=== PATIENT | female | born 1995 | race Caucasian/White ===

== ENCOUNTER 2017-06-29 10:08 | Emergency (ER) | payer BC, SELFPAY ==
[2017-06-29 10:10] VITALS: BP 158/101; PULSE 107; RESP 16; TEMP 36.7; O2SAT 98; BMI 46.0
--- NOTE | 2017-06-29 10:28 | RAD_ITS ---
STUDY: X-RAY - LEFT TIBIA AND FIBULA REASON FOR EXAM: Female, 22 years old. Lower extremity pain following a fall. TECHNIQUE: 4 view(s) of the tibia and fibula were obtained. COMPARISON: None. FINDINGS: Nondisplaced fracture involving the posterior malleolus of the distal tibia. Normal visualized fibula. Soft tissue swelling. RAD/Tibia & Fibula 2 Views IMPRESSION: Nondisplaced fracture of the posterior malleolus of the distal tibia with overlying soft tissue swelling. Electronically Signed: Haris Mix MD at 11:35 EDT Tel [phone], Service support ,
--- NOTE | 2017-06-29 10:29 | RAD_ITS ---
STUDY: X-RAY - LEFT ANKLE REASON FOR EXAM: Female, 22 years old. Lower extremity pain following injury. TECHNIQUE: 3 view(s) of the ankle. COMPARISON: None. FINDINGS: Nondisplaced fracture along the posterior aspect of the distal tibial metaphysis. Normal medial and lateral malleoli. Normal tibiotalar articulation and ankle mortise. Normal visualized talus and calcaneus. The visualized subtalar, talonavicular, calcaneocuboid and tarsal articulations are normal. Soft tissue swelling. RAD/Ankle min 3 Views IMPRESSION: Nondisplaced fracture involving the posterior aspect of the distal tibial metaphysis. Soft tissue swelling. Electronically Signed: Haris Mix MD at 11:34 EDT Tel [phone], Service support ,
[2017-06-29] MEDS: Naproxen 500 MG Tablet PO (10:35)
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
--- NOTE | 2017-06-29 10:58 | ED.DEP ---
ED Disposition - Plan for ED Patient: Disposition: Home or Assisted Living Chief Complaint: Lower Extremity Injury Instructions: ED Sprain Ankle W X Ray Prescriptions: Naproxen 500 mg PO BID PRN PRN #20 tab PRN Reason: Pain
--- NOTE | 2017-06-29 11:55 | ED.DEP ---
ED Disposition - Plan for ED Patient: Disposition: Home or Assisted Living Chief Complaint: Lower Extremity Injury Instructions: ED Fx Lower Ext Prescriptions: Oxycodone [Oxyir] 5 mg PO Q6H PRN PRN #20 tab PRN Reason: Pain Naproxen 500 mg PO BID PRN PRN #20 tab PRN Reason: Pain Referrals: [facility],Out of [Primary Care Provider] -
== END 2017-06-29 12:13 | disposition home or self-care (01) ==
PROVIDERS: Emergency Provider Emergency Medicine
DX: S82.302A Unspecified fracture of lower end of left tibia, initial encounter for closed fracture (principal); E66.9 Obesity, unspecified; W00.0XXA Fall on same level due to ice and snow, initial encounter; Y93.01 Activity, walking, marching and hiking; Y92.89 Other specified places as the place of occurrence of the external cause; Y99.8 Other external cause status
CPT/HCPCS: 29515; 73590; 73610; 99284

== ENCOUNTER 2017-09-13 15:50 | Outpatient (RCR) | payer BC, SELFPAY ==
--- NOTE | 2017-09-13 16:40 | HP.PTEVAL_ITS ---
Patient's Visit Information DAYTON BENDER is a 22 year old F referred to Physical Therapy by Out of Town Doctor with a diagnosis of Broken fibula. Date of Evaluation: 09/13/17 Physical Therapist: Indigo Ying - Visit Plan Frequency: 3x /Week Duration: 6 Weeks Plan: 3X/ week for 6 weeks for L ankle AROM, stretching, strengtheing, balnce and proproception, gait training with HEP. - Subjective Subjective: Pt fell and broke her ankle in May and had surgery June and she broke fibula, base of ankle and chipped the top of the ball of the ankle and the ligaments that surrounded the ankle. She has a tight rope, plate, 6 screws. She is supposed to be wearing the boot and weaning to a brace but she is not wearing the boot or the brace. wants her to do PT. She is leaving to go to [place] [facility]. Pt has zero pain with it and some stiffness. She is going up and down stairs and has been khayaking a lot in the last few weeks and having some squating issues and initial pressure. She will do HEP on her trip. - Pain L ankle pain Pain Intensity (Out of 10): 0 - Objective Gait: walks like she still is wearing the boot with L forefoot hip abd and decreased DF. L ankle AROM: 0 degrees DF and 42 degrees PF, 12 degrees INV and 4 degrees EV. R ankle AROM: 7 degrees DF and 50 degrees PF. scar is adhered in several places. Is able to heel and toe raise at the same time with both feet X 5 each direction. L ankle MMT: Inv/EV 4-/5 B - Goals Goal 1:: I HEP Goal Time Frame: 4-6 Weeks Goal 2:: Increase L ankle AROM DF to 7 degrees Goal Time Frame: 4-6 Weeks Goal 3:: Walk with a normal gait pattern Goal Time Frame: 4-6 Weeks - Rehabilitation Potential Rehabilitation Potential: Good - Anticipated Interventions Patient/Client Instruction: Educate patient on: Plan of Care For the Purpose of:: To decrease pain, To decrease swelling/inflammation, To increase ROM, To improve nutrient delivery to tissue, To improve muscle performance and motor function, To improve ability to perform ADL's, To increase tolerance to activity/condition/position, To improve gait and locomotor functions, To improve health of tissue, To decrease soft tissue restriction, To increase flexibility/ROM, To improve balance Therapeutic Exercise to Include: Strength training, Endurance training, Balance training, Flexibilty training, Gait and locomotor training, Passive ROM, Active ROM For the Purpose of:: To decrease pain, To decrease swelling/inflammation, To increase ROM, To improve nutrient delivery to tissue, To improve muscle performance and motor function, To improve ability to perform ADL's, To improve gait and locomotor functions, To improve health of tissue, To decrease soft tissue restriction, To increase flexibility/ROM, To improve balance Functional Training to Include: Gait training For the Purpose of:: To improve gait and locomotor functions, To improve safety with gait Manual Therapy Techniques to Include: Passive ROM For the Purpose of:: To increase ROM, To decrease soft tissue restriction, To increase flexibility/ROM IF ES: Yes Cryotherapy (ice pack, ice massage): Yes For the Purpose of:: To decrease pain, To decrease swelling/inflammation, To increase ROM, To improve nutrient delivery to tissue Thank you for the opportunity to evaluate your patient. For Medicare and Medicare HMO plans, please review the plan of care and approve it. It will need to be FAXED BACK to us at [phone] for Medicare purposes. Please let me know if there are questions or concerns regarding this plan of care. Physician Signature: Date:
--- NOTE | 2017-12-01 12:56 | HP.PT.NRP ---
HP - Discharge Summary (1) - Patient Information DAYTON BENDER was seen in my office for initial evaluation on 09/13/17. The following Plan of Care was established for this patient: Initial Frequency: 3x /Week Initial Duration: 6 Weeks - Anticipated Interventions Patient/Client Instruction: Educate patient on: Plan of Care For the Purpose of:: To decrease pain, To decrease swelling/inflammation, To increase ROM, To improve nutrient delivery to tissue, To improve muscle performance and motor function, To improve ability to perform ADL's, To increase tolerance to activity/condition/position, To improve gait and locomotor functions, To improve health of tissue, To decrease soft tissue restriction, To increase flexibility/ROM, To improve balance Therapeutic Exercise to Include: Strength training, Endurance training, Balance training, Flexibilty training, Gait and locomotor training, Passive ROM, Active ROM For the Purpose of:: To decrease pain, To decrease swelling/inflammation, To increase ROM, To improve nutrient delivery to tissue, To improve muscle performance and motor function, To improve ability to perform ADL's, To improve gait and locomotor functions, To improve health of tissue, To decrease soft tissue restriction, To increase flexibility/ROM, To improve balance Functional Training to Include: Gait training For the Purpose of:: To improve gait and locomotor functions, To improve safety with gait Manual Therapy Techniques to Include: Passive ROM For the Purpose of:: To increase ROM, To decrease soft tissue restriction, To increase flexibility/ROM IF ES: Yes Cryotherapy (ice pack, ice massage): Yes For the Purpose of:: To decrease pain, To decrease swelling/inflammation, To increase ROM, To improve nutrient delivery to tissue This patient was last seen in our office 09/13/17. Pertinent comments regarding their Physical therapy will appear below: Pt did not schedule any additional appointments after her initial eval. [facility]. At this point I will be discontinuing this patient from physical therapy. I would be happy to see this patient again in the future if found appropriate by the physician. Thank you! Indigo Ying
== END 2017-09-13 19:00 | disposition home or self-care (01) ==
LOC: PT 15:50
DX: S93.432D Sprain of tibiofibular ligament of left ankle, subsequent encounter (principal); M25.372 Other instability, left ankle
CPT/HCPCS: 97161

== ENCOUNTER → 2017-09-20 13:24 | Outpatient (CLI) | payer BC, SELFPAY ==
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
== END ==
DX: M79.672 Pain in left foot (principal); S91.332A Puncture wound without foreign body, left foot, initial encounter; X58.XXXA Exposure to other specified factors, initial encounter; Y93.9 Activity, unspecified; Y92.9 Unspecified place or not applicable; Y99.9 Unspecified external cause status
CPT/HCPCS: 73630

== ENCOUNTER 2017-09-21 17:27 | Emergency (ER) | payer BC, SELFPAY ==
[2017-09-21 17:28] VITALS: BP 146/101; PULSE 150; RESP 16; TEMP 37.6; O2SAT 98; BMI 47.7
[2017-09-21 18:50] LABS: Absolute Lymphocyte Count 0.77 X10^3/ul (0.83-4.51); Absolute Neutrophil Count 9.4 X10^3/uL (2.0-7.7); Basophil# 0.02 X10^3/uL; Basophil% 0.2 % (0-1); Eosinophil# 0.02 X10^3/uL; Eosinophils% 0.2 % (0-5); Hematocrit 41.1 % (37-47); Hemoglobin 13.6 g/dl (12.0-15.0); Lymphocyte # 0.77 X10^3/ul (4.0); Lymphocyte % 7.1 % (19-41); Mean Corp Hgb Conc 33.1 g/gl (32-36); Mean Corpuscular Volume 87.6 fL (81-99); Mean Platelet Vol. 9.1 fl (6.2-12.0); Monocyte% 5.5 % (0-10); Neutrophil # 9.44 X10^3/uL (2.7-7.7); Neutrophil % 86.9 % (47-70); Platelet Count 230 K/mm3 (150-450); RBC Distribution Width CV 13.6 % (11.6-14.6); Red Blood Count 4.69 M/mm3 (4.2-5.4); White Blood Count 10.9 K/mm3 (4.4-11.0)
[2017-09-21 18:56] LABS: Anion Gap 11 (5-15); BUN 10 mg/dL (7-18); BUN/Creat Ratio 9.9 RATIO (10-20); Calcium,Total 9.1 mg/dL (8.5-10.1); Chloride 103 mmol/L (98-107); Creatinine, Serum 1.01 mg/dL (0.55-1.02); EST Glomerular Filtration Rate 74 mL/min (>60); Est Glom Filt Rate - Afr Amer 89 mL/min (>60); Estimated Creatinine Clearance 96.08 ml/min; Glucose 105 mg/dL (74-106); Potassium 3.7 mmol/L (3.5-5.1); Sodium Level 137 mmol/L (136-145)
--- NOTE | 2017-09-21 19:01 | US_ITS ---
STUDY: VENOUS DOPPLER ULTRASOUND - LEFT LOWER EXTREMITY REASON FOR EXAM: Female, 22 years old. Infection and injury to the ankle TECHNIQUE: Ultrasound evaluation of the deep vein system to include cast-scale imaging and compression was performed. Cast-scale imaging and Doppler sonographic evaluation, including duplex spectral analysis and qualitative color flow sonography, was performed. COMPARISON: None. FINDINGS: Common Femoral Vein: Normal compression, spontaneity and augmentation. Normal color Doppler. Common Femoral Vein/Greater Saphenous Junction: Normal compression, spontaneity and augmentation. Normal color Doppler. Deep Femoral Vein: Normal compression, spontaneity and augmentation. Normal color Doppler. Femoral Proximal: Normal compression, spontaneity and augmentation. Normal color Doppler. Femoral Middle: Normal compression, spontaneity and augmentation. Normal color Doppler. Femoral Distal: Normal compression, spontaneity and augmentation. Normal color Doppler. Popliteal Vein: Normal compression, spontaneity and augmentation. Normal color Doppler. Posterior Tibial Vein: Normal compression, spontaneity and augmentation. Normal color Doppler. Peroneal Vein: Normal compression, spontaneity and augmentation. Normal color Doppler. There is no demonstrated deep venous thrombosis. US/Venous Duplex Imag/Limited/Uni IMPRESSION: Normal venous Doppler ultrasound of the lower extremity. Electronically Signed: Joey Steward MD at 19:46 EDT , Service support ,
[2017-09-21 19:17] LABS: hCG Titer Quant., Serum < 1 mIU/mL (<9 non-preg)
[2017-09-21 19:19] LABS: POSITIVE COUNT NO; POSITIVE DIFFERENTIAL NO; POSITIVE MORPHOLOGY NO
--- NOTE | 2017-09-21 19:26 | RAD_ITS ---
STUDY: X-RAY - LEFT ANKLE REASON FOR EXAM: Female, 22 years old. Pain. Infection. TECHNIQUE: 3 view(s) of the ankle. COMPARISON: June 29, 2017 FINDINGS: Status post ORIF lower leg fractures with fixation plate of the distal fibula and screws and hardware extending to the tibia. Normal medial and lateral malleoli. Normal tibiotalar articulation and ankle mortise. Normal visualized talus and calcaneus. The visualized subtalar, talonavicular, calcaneocuboid and tarsal articulations are normal. The soft tissue structures are unremarkable. RAD/Ankle min 3 Views IMPRESSION: Status post ORIF lower leg fracture. No destructive lesion. Electronically Signed: Joey Steward MD at 20:48 EDT , Service support ,
[2017-09-21] MEDS: Ondansetron 4 MG/2 ML Vial IV (19:52)
[2017-09-21] MEDS: 0.9% Normal Saline 1,000 ML 150 ML IV (19:53)
[2017-09-21] MEDS: Morphine 4 MG/ML Syringe IV (19:53)
[2017-09-21 19:55] VITALS: PULSE 112; RESP 16; O2SAT 99
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
--- NOTE | 2017-09-21 21:00 | ED.DEP ---
ED Disposition - Plan for ED Patient: Disposition: Home or Assisted Living Chief Complaint: Wound Check Instructions: ED Post Op Pain Referrals: NOT,DEFINED [Primary Care Provider] - Additional Instructions: Follow-up with your surgeon tomorrow as discussed. Continue your Bactrim and Cipro.
[2017-09-21 21:01] VITALS: BP 139/81; PULSE 108; RESP 20; O2SAT 97
[2017-09-21 21:47] LABS: Erythrocyte Sedimentation Rate 27 mm/hr (0-20)
== END 2017-09-21 21:25 | disposition home or self-care (01) ==
PROVIDERS: Emergency Provider Emergency Medicine
DX: S91.312A Laceration without foreign body, left foot, initial encounter (principal); M25.572 Pain in left ankle and joints of left foot; M25.472 Effusion, left ankle; W16.112A Fall into natural body of water striking water surface causing other injury, initial encounter; Y93.89 Activity, other specified; Y92.9 Unspecified place or not applicable
CPT/HCPCS: 73610; 80048; 84702; 85025; 85652; 86140; 87040; 93971; 96361; 96374; 96375; 99284; J7030; J7040; A4216; J2405

== ENCOUNTER 2018-03-22 01:05 | Emergency (ER) | payer BC, SELFPAY ==
[2018-03-22 01:09] VITALS: BP 156/88; PULSE 115; RESP 17; TEMP 37.1; O2SAT 98; BMI 50.1
--- NOTE | 2018-03-22 02:30 | ED.RN ---
CONTINUING TO HOLD PRESSURE ON BLEEDING. ADDITIONAL DRESSING ADDED TO DRESSING. DR PACHECO AT THE BEDSIDE SEVERAL TIMES
--- NOTE | 2018-03-22 03:25 | ED.DEP ---
ED Disposition - Plan for ED Patient: Chief Complaint: Lower Extremity Injury Instructions: ED Wound Check Post Op Bleeding Referrals: [facility] Doctor,Out of [Primary Care Provider] - Jax Gould DO [STAFF PHYSICIAN] -
--- NOTE | 2018-03-22 03:30 | ED.RN ---
DR TAN AT THE BEDSIDE
[2018-03-22] MEDS: Ondansetron 4 MG/2 ML Vial IV (03:39)
[2018-03-22 03:40] VITALS: BP 124/78; PULSE 79; RESP 16; O2SAT 100
--- NOTE | 2018-03-22 03:41 | ED.RN ---
THIS NURSE REVIEWED D/C INSTRUCTIONS WITH PT. PT VERBALIZED UNDERSTANDING OF INSTRUCTIONS. IV D/C. IV CATHETER INTACT. PT TOLERATED WELL. PT DENIES FURTHER NEEDS OR QUESTIONS AT THIS TIME. PT AMBULATES FROM ROOM ON OWN WITHOUT ASSISTANCE FROM STAFF
--- NOTE | 2018-03-22 07:11 | ED.DCSUM_ITS ---
- ER Visit Summary Date of Service: 03/22/18 Chief Complaint: Wound bleeding History of Present Illness: The patient is a 23 F who presents with a bleeding wound. She underwent surgery for an ACL repair yesterday afternoon. At about 11:30 PM she developed bleeding from 1 of the wounds. She completely saturated her dressing. She spoke to her orthopedic surgeon who advised that she change the dressings and will see her in the morning. She again completely saturated her dressing so presented here for evaluation. She denies any pain. She states that she did develop some sweats and was concerned this may be due to blood loss. She denies any chest pain shortness of breath lightheadedness dizziness. Physical Examination: Afebrile initial heart rate 115 Heart regular rhythm Lungs clear Abdomen soft Patient's dressing is completely saturated. When this was taken down she does have some old blood diffusely from the saturated dressing however the source of oozing appears to be from 2 sutured wounds over the anterior leg just distal to the patella Test Results: Not indicated Emergency Department Course and Treatment: Initially patient was just oozing. A hemostatic foam dressing was placed. Her bleeding actually increased and she quickly saturated this in the dressing. This was taken down. I used silver nitrate to attempt to cauterize at the skin at the source of the bleeding. Hemostasis temporarily achieved but she again began to bleed. At this point bleeding was much more brisk and pulsatile. she was injected with local lidocaine with epinephrine and again only temporary hemostasis was achieved. The bleeding at this point mainly appeared to be from the more lateral of the 2 wounds just distal to the patella. I removed the suture and placed a 4?0 [id number] suture again with only temporary hemostasis. I spoke to Dr. Gould. He asked that we just apply a pressure dressing and admit the patient and he will evaluate them in the morning for possible surgical management. On reevaluation she had more brisk recurrent bleeding. I removed the suture and attempted to cauterize d again which was not successful. At this point I did ask Dr. Gould to evaluate the patient in the ED. orthopedics did evaluate the patient here in the emergency department and noted that bleeding had slowed and felt the patient be discharged to follow-up in the office. A large dressing was applied. Patient discharged per orthopedics. Treatment Plan: [] Disposition: Discharge Impression: Bleeding surgical wound This note was generated with Dragon dictation software. It may contain incorrect words, spelling, and punctuation that were not noted in review of the chart prior to signing ED Disposition - Plan for ED Patient: Disposition: Home or Assisted Living Chief Complaint: Lower Extremity Injury Instructions: ED Wound Check Post Op Bleeding Referrals: Jax Gould DO [STAFF PHYSICIAN] - [facility] Doctor,Out of [Primary Care Provider] -
== END 2018-03-22 03:43 | disposition home or self-care (01) ==
LOC: ED 02:50
PROVIDERS: Emergency Provider Emergency Medicine
DX: M96.830 Postprocedural hemorrhage of a musculoskeletal structure following a musculoskeletal system procedure (principal); Z79.82 Long term (current) use of aspirin; Z79.891 Long term (current) use of opiate analgesic
CPT/HCPCS: 35860; 96374; 99282; A4216; J2405